=== PATIENT | female | born 1940 | race Caucasian/White ===

== ENCOUNTER → 2016-07-09 | Outpatient (CLI) | payer OTHER, BC ==
[~2016-07-09] VITALS: Ht 162.6 cm; Wt 104.1 kg
[~2016-07-09] MED LIST: ACET-1138 PO; ACET-1256 PO; ACETAMINOPHEN 500 MG TAB PO SCH; ASPEC325 PO; ASPI325T4 PO; BUPIVACAINE LIPOSOME 266 MG, BUPIVACAINE/EPINEPHRINE INJ 50 ML, SODIUM CHLORIDE 0.9% PF... INFIL SCH; CEFAZOLIN 2000 MG/60 ML D5W 60 ML IV SCH; CHECK SCOPOLAMINE PATCH PLACEMENT SCH; CLC100 PO; FAMOTIDINE 20 MG TAB PO SCH; GABAPENTIN 300 MG CAP PO SCH; HYDR1OIN11 TOP; LACTATED RINGER'S 1000ML 1,000 ML IV SCH; LACTATED RINGER'S 1000ML 500 ML IV ONE; LACTATED RINGER'S 1000ML IV SCH; METOCLOPRAMIDE HCL 10 MG TAB PO SCH; SCOPOLAMINE 1.5 MG TDSY TD SCH; SIME1CAP28 PO; SIMV5TAB2 PO; SKINCRE34 TOP; TRANEXAMIC ACID INJ 1,000 MG in SODIUM CHLORIDE 0.9% 100ML 100 ML IV SCH; TRANEXAMIC ACID INJ 1,000 MG in SODIUM CHLORIDE 0.9% 100ML 100 ML TOP SCH; TRIA37.5 PO; ULT50X PO; [UNRECOGNIZED DRUG - CODE] PO
[2016-07-09 13:17] VITALS: Ht 162.6 cm; Wt 104.1 kg
--- NOTE | 2016-07-09 14:16 | PAT Medication Instructions ---
Service Date Jul 09, 2016. Current Home Medication List Acetaminophen (Tylenol), 2 TAB PO Q6 PRN for Pain Docusate Sodium (Docusate Sodium), 1 CAP PO PRN Eucerin (Eucerin), 1 APPLN TOP PRN PRN for DRYNESS Hydrocortisone (Topical) (Cortizone-10), 1 DOSE TOP prn PRN for HEMERRHOID INFLAMMATION Multiple Vitamins W/ Minerals (One Daily Multivitamin Wo), 2 TAB PO QAM Simethicone (Simethicone), 80 MG PO PRN Simvastatin (Zocor), 5 MG PO NOT DIRECTED Triamterene/Hctz (Dyazide 37.5MG/25MG), 1 TAB PO QAM Medication Instructions For Your Scheduled Surgery - Hold the following medications 24 hours prior to surgery: Eucerin (Eucerin), 1 APPLN TOP PRN PRN for DRYNESS - Hold the following medications the morning of surgery: Triamterene/Hctz (Dyazide 37.5MG/25MG), 1 TAB PO QAM Simethicone (Simethicone), 80 MG PO PRN Multiple Vitamins W/ Minerals (One Daily Multivitamin Wo), 2 TAB PO QAM Hydrocortisone (Topical) (Cortizone-10), 1 DOSE TOP prn PRN for HEMERRHOID INFLAMMATION Docusate Sodium (Docusate Sodium), 1 CAP PO PRN - Take the following medications the morning of surgery with a sip of water: Acetaminophen (Tylenol), 2 TAB PO Q6 PRN for Pain (if needed) - Take the following medications as scheduled the night before surgery: Simethicone (Simethicone), 80 MG PO PRN Hydrocortisone (Topical) (Cortizone-10), 1 DOSE TOP prn PRN for HEMERRHOID INFLAMMATION Acetaminophen (Tylenol), 2 TAB PO Q6 PRN for Pain Simvastatin (Zocor), 5 MG PO NOT DIRECTED If you have any questions please call us at [phone] or [phone] ( [place]) or [phone]
[2016-07-09 14:53] LABS: BASO % 0.2 %; BASO ABS # 0.01 K/uL (0-0.2); COMPLETE YES; EOS % 1.1 %; LYMPH % 29.3 %; LYMPH ABS # 1.83 K/uL (1.2-3.4); MEAN CELL VOLUME 91.5 fL (80-100); MEAN CORPUSCULAR HEMOGLOBIN 32.4 pg (25-34); MEAN CORPUSCULAR HGB CONC 35.5 g/dl (32-36); MEAN PLATELET VOLUME 10.3 fL (7.4-10.4); MONO % 7.2 %; NEUT % 62.2 %; PLATELET COUNT 184 K/uL (130-400); RED BLOOD COUNT 4.81 M/uL (4.2-5.4); WHITE BLOOD COUNT 6.25 K/uL (4.8-10.8)
--- NOTE | 2016-07-09 14:56 | DIAGNOSTIC IMAGING REPORT ---
CHEST 2 VIEWS ROUTINE CLINICAL HISTORY: pat preoperative evaluation COMPARISON STUDY: No previous studies for comparison. FINDINGS: The bones soft tissues and hemidiaphragms are normal. The cardiomediastinal silhouette is normal. The lungs are clear. The pulmonary vasculature is normal. IMPRESSION: Negative chest. Electronically signed by: Holden Perrin M.D. 07/09/2016 2:54 PM Dictated Date/Time: 07/09/2016 2:54 PM
[2016-07-09 15:04] LABS: PROTHROMBIN TIME (PATIENT) 10.7 SECONDS (9.0-12.0)
[2016-07-09 15:20] LABS: BUN/CREATININE RATIO 20.2 (10-20); CALCIUM 9.7 mg/dl (8.5-10.1); CREATININE 0.88 mg/dl (0.60-1.20); POTASSIUM 3.4 mmol/L (3.5-5.1)
--- NOTE | 2016-08-07 00:04 | HISTORY & PHYSICAL EXAMINATION ---
DATE OF ADMISSION: 08/11/2016 CHIEF COMPLAINT: Left hip pain. HISTORY OF PRESENT ILLNESS: A 76-year-old female who presents for surgical treatment of her left hip. She has got several-year history of left hip pain and discomfort. Describes it has gotten worse over time. She was thinking about having her hip replaced a while ago but developed some uterine cancer and had to go through that. She has now recovered from this. She has been more debilitated by left hip pain. She has limited walking tolerance. She has difficulty putting her shoes and socks on. She would like to proceed with hip replacement. She feels like her hip is really limiting her activity and exercise ability. PAST MEDICAL HISTORY: 1. Elevated cholesterol. 2. Uterine cancer status post hysterectomy. 3. Hypertension. 4. Arthritis. PAST SURGICAL HISTORY: Previous surgeries include: 1. Cataract surgery. 2. Hysterectomy. ALLERGIES: None. CURRENT MEDICATIONS: Include: 1. Triamterene/hydrochlorothiazide once a day. 2. Simvastatin once a day. SOCIAL HISTORY: A 76-year-old female. She does not smoke. She is . FAMILY HISTORY: Noncontributory. REVIEW OF SYSTEMS: Negative for diabetes, neurologic problems, vascular problems or bleeding disorders. No chest pain or shortness of breath. No history of DVT or PE. She does have a history of uterine cancer but apparently in remission. PHYSICAL EXAMINATION: GENERAL: Reveals a healthy pleasant elderly female. She looks to be in reasonably good health. HEENT: Benign. NECK: Supple. No lymphadenopathy. LUNGS: Clear to auscultation. HEART: Has a regular rate and rhythm. ABDOMEN: Soft, nontender, nondistended. EXTREMITIES: Grossly neurovascularly intact except as follows: Examination of left hip reveals the patient walks with a markedly antalgic gait. Leg lengths clinically appear pretty equal. She has got very stiff hip. Internal rotation to neutral at best. She can externally rotate to about 20 degrees. Negative straight leg raise. X-RAYS: X-rays of the left hip were reviewed. It shows advanced left hip DJD. She has got complete loss of superior joint space. Cystic change in the femoral head and acetabulum. She has a pretty significant osteophyte in the acetabulum. Bone density looks pretty good. 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 It is gradually getting worse. She does have some underlying back arthritis as well, but I think her hip is probably the limiting fracture. PLAN: We talked about treatment and she would like to have her left hip replaced. We will take her to the operating room and do a left total hip replacement. The risks and benefits of this procedure were explained to the patient including but not limited to DVT, PE, , infection, neurological injury, vascular injury, bleeding problem, pain, limited range of motion, stiffness, failure to relieve symptoms, incomplete relief of symptoms, need for further surgery in the future, fracture, leg length inequality, nerve palsy, dislocation, etc. The patient understands and desires to proceed. Informed consent was obtained. The patient had preoperative workup. Labs are all pretty normal. She is hoping to be discharged to home with some home health and her 's assistance. Her daughter will help her as well.
--- NOTE | 2016-08-12 10:57 | CODING QUERY NO DIAGNOSIS ---
TREATMENT RENDERED WITHOUT A DIAGNOSIS To promote full compliance with coding requirements relating to patient care, physician participation is requested in all cases of clinical nursing assistant uncertainty. Please assist us with providing a diagnosis/symptom for the test(s) below: A diagnosis/symptom was not documented on your Order. A valid diagnosis/symptom is required to bill all insurances. Please remember that we are unable to code a diagnosis of rule out, probable, possible, questionable, or suspected. DOS: 07/09/16 Tests that require a diagnosis: * CBC WITH AUTO DIFFER DIAGNOSIS: * PTT DIAGNOSIS: * PROTHROMBIN TIME PRO DIAGNOSIS: * ECG ROUTINE DIAGNOSIS: Provider Signature: Date: Thank you Lupe [facility] Information Management Once completed, please kindly fax back to [phone] For questions please call [phone]
== END | disposition home or self-care (01) ==
LOC: C.LAB 08:00 → EDSTATUS 12:45
PROVIDERS: ATTEND Orthopaedic Surgery Sports Medicine
DX: M16.10 Unilateral primary osteoarthritis, unspecified hip (principal); Z01.812 Encounter for preprocedural laboratory examination